=== PATIENT | male | born 1980 | race Asian ===

== ENCOUNTER 2016-12-03 22:10 | Emergency (ER) | payer SELFPAY ==
[~2016-12-03] VITALS: Ht 175.3 cm; Wt 68.0 kg
[2016-12-03 22:15] VITALS: BP 129/78
[2016-12-04 02:42] VITALS: BP 132/69
[2016-12-04 04:24] VITALS: BP 127/89
--- NOTE | 2016-12-04 04:42 | Emergency Room Report ---
History of Present Illness General Chief Complaint: Alcohol Intoxication Source: Patient Present Illness HPI Patient was brought in by paramedics for reports of alcohol ingestion and intoxication patient initially somewhat belligerent Refuses any further workup reports that he had been drinking Denies any headache denies any chest pain Denies any back or flank pain Allergies: Coded Allergies: No Known Allergies (Unverified , 07/12/14) UNABLE TO ASSESS (Unverified , 12/03/16) Patient History Past Medical History: see triage record Pertinent Family History: none Reviewed Nursing Documentation: PMH: Agreed, PSxH: Agreed Nursing Documentation-PMH Past Medical History Deferred: Pt Cognitively Impaired Review of Systems All Other Systems: negative except mentioned in HPI Physical Exam Vital Signs Date Time Temp Pulse Resp B/P Pulse Ox O2 Delivery O2 Flow Rate FiO2 12/03/16 22:06 98.2 111 18 151/98 98 Room Air Sp02 EP Interpretation: reviewed, normal General Appearance: other - Slurring speech, agitated Head: normocephalic, atraumatic Eyes: bilateral eye EOMI, bilateral eye PERRL ENT: normal pharynx Neck: full range of motion, supple Respiratory: lungs clear Cardiovascular #1: regular rate, rhythm Gastrointestinal: non tender, soft Musculoskeletal: normal inspection Neurologic: responsive, c t tech III-XII nml as tested Skin: no rash, warm/dry Lymphatic: no adenopathy Medical Decision Making Diagnostic Impression: Primary Impression: Acute alcoholic intoxication ER Course Patient was allowed to rest Initially multiple differentials are considered including intracranial, metabolic disease Patient however reports on-call intake Refusing any further workup After prolonged observation patient is ambulatory Apologize for the way he came in And was stable for close outpatient followup Last Vital Signs Date Time Temp Pulse Resp B/P Pulse Ox O2 Delivery O2 Flow Rate FiO2 12/04/16 04:24 81 21 127/89 99 Room Air 12/03/16 22:06 98.2 Status: improved Disposition: HOME, SELF-CARE Condition: Improved Referrals: NOT CHOSEN IPA/,REFERRING (PCP) Additional Instructions: Patient is provided with the discharge instructions notified to follow up with primary doctor in the next 2-3 days otherwise return to the er with any worsening symptoms. Please note that this report is being documented using [employer] technology. This can lead to erroneous entry secondary to incorrect interpretation by the dictating instrument. LINDA MARTIN D.O. December 04, 2016 04:42
== END 2016-12-04 04:26 | disposition home or self-care (01) ==
LOC: EDBD 22:10 → EMR 23:18
DX: F10.129 Alcohol abuse with intoxication, unspecified (principal)
CPT/HCPCS: 99284